=== PATIENT | male | born 1995 | race Two or more races ===

== ENCOUNTER 2021-07-18 22:03 | Emergency (ER) | payer OTHER ==
[~2021-07-18] VITALS: Ht 162.6 cm; Wt 62.6 kg
[2021-07-19 01:16] VITALS: BP 134/78
== END 2021-07-19 01:23 | disposition home or self-care (01) ==
LOC: ER 22:07
DX: S16.1XXA Strain of muscle, fascia and tendon at neck level, initial encounter (principal); V89.2XXA Person injured in unspecified motor-vehicle accident, traffic, initial encounter; Y93.89 Activity, other specified; Y92.89 Other specified places as the place of occurrence of the external cause; Y99.8 Other external cause status
CPT/HCPCS: 72125; 99284; J7030